=== PATIENT | female | born 1995 | race Caucasian/White ===

== ENCOUNTER 2021-10-15 10:26 | Emergency (ER) | payer MEDICAID ==
[~2021-10-15] VITALS: Ht 160 cm; Wt 61.2 kg
[2021-10-15 10:29] VITALS: BP 117/68
--- NOTE | 2021-10-15 10:35 | NUR ---
26 Y/O FEMALE BIB SELF DUE TO RASH OVER ENTIRE UPPER BODY. PER PATIENT THE RASH STARTED X3 WEEKS AGO. PATIENT DENIES ANY NEW SOAPS, OR DETERGENTS. PT DENIES ANY ALLEVIATING OR AGGRAVATING FACTORS. PT DENIES FEVER OR CHILLS. PT DENIES CHEST PAIN, SOB, N/V/D. PMH: DENIES NKA
--- NOTE | 2021-10-15 11:00 | NUR ---
DOMINIK PEOPLES AT PT BEDSIDE
[2021-10-15] MEDS ORDERED: methylPREDNISolone SS 125 MG in WATER STERILE 2 ML IM ONE (11:25)
[2021-10-15] MEDS ORDERED: KEN.1C80 TP (11:28)
[2021-10-15] MEDS ORDERED: PRED20TA5 PO (11:28)
[2021-10-15] MEDS ORDERED: CEPH-588 PO (11:28)
[2021-10-15] MEDS ORDERED: WATER STERILE 0 ML MC ONE (11:29)
[2021-10-15] MEDS ORDERED: methylPREDNISolone SS 125 MG/2 ML VIAL ONE (11:29)
[2021-10-15 11:45] VITALS: BP 118/87
--- NOTE | 2021-10-15 11:46 | NUR ---
Patient discharged with v/s stable. Written and verbal after care instructions given and explained. Patient alert, oriented and verbalized understanding of instructions. Ambulatory with steady gait. All questions addressed prior to discharge. ID band removed. Patient advised to follow up with PMD. Rx of KEFLEX, KENALOG, DELTASONE given. Patient educated on indication of medication including possible reaction and side effects. Opportunity to ask questions provided and answered.
== END 2021-10-15 11:46 | disposition home or self-care (01) ==
LOC: MED 10:26
DX: R21 Rash and other nonspecific skin eruption (principal)
CPT/HCPCS: 96372; 99283; J2930